=== PATIENT | male | born 1955 | race Caucasian/White ===

== ENCOUNTER 2021-05-07 06:30 | Day surgery (SDC) | payer MEDICARE, BC ==
[~2021-05-07] VITALS: Ht 177.8 cm; Wt 113.4 kg
[2021-05-07] MEDS ORDERED: LEVOTHYROXINE75 MC1 PO (07:05)
--- NOTE | 2021-05-07 08:26 | NUR ---
05/07/21 0826 Dior Jacobson 0840 PT ARRIVED TO PACU ON 4L VIA NC, PT WAKES AND IS REORIENTED TO PACU. PT EASIYL FALLS BACK TO SLEEP. VSS.
--- NOTE | 2021-05-08 12:49 | OR ---
[facility] [address], [place] [address] Signed DATE OF OPERATION: 05/07/2021 SURGEON: Brandie Rock MD PREOPERATIVE DIAGNOSIS: Colon screening. POSTOPERATIVE DIAGNOSES: 1. Sigmoid diverticulosis. 2. Small polyp in left transverse colon (excised). PROCEDURE: Total colonoscopy to cecum with cold morcellation polypectomy x1. ANESTHESIA: Intravenous sedation, fentanyl 150 mcg and Versed 7 mg. INDICATION: This 65-year-old white man is a patient of Shilpa Chun, and underwent colonoscopy last by me in 2006. The patient has no symptoms of bleeding, diarrhea or constipation. The patient did have a "breakthrough" case of COVID months ago and has recovered fully from it. His preoperative rapid COVID is negative today. He is admitted to undergo screening colonoscopy. He understands the risks of bleeding, infection, and perforation. Notably, he has no family history of colon cancer either. FINDINGS: The prep was good. Complete colonoscopy was undertaken to the cecum. He had numerous diverticula of the sigmoid and left colon, but no sign of stricture or other abnormality. There was a very small probable polyp in the region of the left transverse colon or splenic flexure, which was excised with cold morcellation technique. The certainly of this being a polyp is not clear, but it was excised on the probability represented a small polyp. There were no other findings of concern. DESCRIPTION OF PROCEDURE: The patient was brought to the endoscopy suite and placed in lateral decubitus position, given intravenous sedation to the point of slurred speech and nystagmus. Full cardiopulmonary monitoring was maintained. Digital rectal examination was normal. An Olympus video colonoscope was passed in the rectum and advanced. There were numerous diverticula of the sigmoid and left colon which slowed down passage of the scope. There Electronically Signed By: BRANDIE ROCK MD 05/08/21 1249 PATIENT NAME: GELY FERGUSON JR OPERATIVE REPORT DATE OF : 53 REPORT #: [id number] PHYSICIAN: BRANDIE ROCK MD PCP: SHILPA CHUN PAC REPORT IS CONFIDENTIAL AND NOT TO BE RELEASED WITHOUT AUTHORIZATION [facility] [address], [place] [address] Signed was a small polyp of the left transverse colon that was excised with cold morcellation technique. This certainty of this being a polyp cannot be said for sure, but it likely is a polyp and if not a lymphoid aggregate at minimum. The scope was ultimately advanced to the cecum. The ileocecal valve and appendiceal orifice were normal. The scope was withdrawn from that point. Examination throughout showed no sign of abnormality other than diverticula of the left colon and sigmoid. Retroflexed view of the rectum was normal. Scope was removed. The patient was taken to the recovery room in good condition. CONCLUDING DIAGNOSES: Diverticulosis and possible small polyp of left transverse colon. PLAN: Recommend a repeat colonoscopy in seven years sooner if symptoms should occur. He will return to the ongoing care of TOÑO Murray. Additionally advised for high-fiber diet based on diverticulosis. MD ESPERANZA Patrick/YVONNE /[id number] cc: Shilpa Chun PA-C Copies: SHILPA CHUN ~ Electronically Signed By: BRANDIE ROCK MD 05/08/21 1249 PATIENT NAME: MARTYGELY OPERATIVE REPORT DATE OF : 53 REPORT #: [id number] PHYSICIAN: BRANDIE ROCK MD PCP: SHILPA CHUN REPORT IS CONFIDENTIAL AND NOT TO BE RELEASED WITHOUT AUTHORIZATION
== END 2021-05-07 09:18 | disposition home or self-care (01) ==
LOC: DS 06:30 → OPS 06:30 → DS 07:30 → OPS 09:18
PROVIDERS: ATTEND Surgery
PROC: 0DBL8ZZ Excision of Transverse Colon, Via Natural or Artificial Opening Endoscopic (ICD-10-PCS; principal; 2021-05-07 07:30)
DX: Z12.11 Encounter for screening for malignant neoplasm of colon (principal); K63.5 Polyp of colon; K57.30 Diverticulosis of large intestine without perforation or abscess without bleeding; Z86.16 Personal history of COVID-19; E03.9 Hypothyroidism, unspecified; G47.33 Obstructive sleep apnea (adult) (pediatric)
CPT/HCPCS: 99153; G0500; J2250; J3010; J7121; U0003